=== PATIENT | male | born 1975 | race Two or more races ===

== ENCOUNTER 2020-10-14 19:31 | Observation (INO) | payer BC, OTHER ==
[~2020-10-14] VITALS: Ht 167.6 cm; Wt 146.0 kg
[2020-10-14] MEDS ORDERED: ASPIRIN CHEWABLE 81 MG TABLET. PO ONE (20:30)
[2020-10-14] MEDS ORDERED: NITROGLYCERIN SUBLINGUAL 0.4 MG BOTTLE OF 25. SL PRN (20:30)
--- NOTE | 2020-10-14 20:37 | ED.ADGEN ---
Past Medical History Past Medical History: Diabetes-Type II, Other Additional Past Medical Histor: diverticulitis Past Surgical History: Colectomy, Other Additional Past Surgical Histo: "diverticulitis sx" Smoking Status: Never Smoker Alcohol Use: None Drug Use: None General Adult EDM: Chief Complaint: CHEST PAIN HPI: HPI: Patient is a 44 year old male coming in for chest pain or shortness of breath starting 1 hour prior to arrival. Patient had been at work and describes the pain as substernal pressure-like. Denies any cough. Has had some nausea and dizziness, no diaphoresis or vomiting. Patient has any personal history of heart problems but has a history of hypertension diabetes. Has family history of heart disease. Patient states the pain radiates to his left neck and he has a slight headache. Review of Systems: Review of Systems: Constitutional: Denies fever or chills. [] Eyes: Denies change in visual acuity. [] HENT: Denies nasal congestion or sore throat. [] Respiratory: Denies cough or shortness of breath. [] Cardiovascular: Chest pressure, no lower extreme edema GI: Denies abdominal pain, nausea, vomiting, bloody stools or diarrhea. [] : Denies dysuria. [] Musculoskeletal: Denies back pain or joint pain. [] Integument: Denies rash. [] Neurologic: Generalized headache without focal weakness or sensory changes. [] Endocrine: Denies polyuria or polydipsia. [] Lymphatic: Denies swollen glands. [] Psychiatric: Denies depression or anxiety. [] Current Medications: Current Medications Medications (Trade) Dose Ordered Sig/[facility] Start Time Stop Time Status Last Admin Dose Admin Acetaminophen (Tylenol) 650 mg PRN Q4HRS PRN 10/15/20 00:15 10/16/20 00:14 Aspirin (Aspirin Chewable) 324 mg 1X ONCE 10/14/20 20:30 10/14/20 20:31 DC 10/14/20 20:55 324 MG Fentanyl Citrate (Fentanyl 2ml Vial) 50 mcg PRN Q1HR PRN 10/15/20 00:15 10/16/20 00:14 Nitroglycerin (Nitrostat) 0.4 mg PRN Q5MIN PRN 10/15/20 00:15 10/16/20 00:14 Ondansetron HCl (Zofran) 4 mg PRN Q8HRS PRN 10/15/20 00:15 10/16/20 00:14 Allergies: Allergies: Allergies Coded Allergies Type Severity Reaction Last Updated Verified No Known Drug Allergies 03/06/15 No Physical Exam: PE: Constitutional: Well developed, well nourished, morbid obesity, nondiaphoretic HENT: Normocephalic, atraumatic, bilateral external ears normal, oropharynx moist, no oral exudates, nose normal. [] Eyes: PERRLA, EOMI, conjunctiva normal, no discharge. [] Neck: Normal range of motion, no tenderness, supple, no stridor. [] Cardiovascular:Heart rate regular rhythm, no murmur [] Lungs & Thorax: Bilateral breath sounds clear to auscultation [] Abdomen: Bowel sounds normal, soft, no tenderness, no masses, no pulsatile masses. [] Skin: Warm, dry, no erythema, no rash. [] Back: No tenderness, no CVA tenderness. [] Extremities: No tenderness, no cyanosis, no clubbing, ROM intact, no edema. [] Neurologic: Alert and oriented X 3, normal motor function, normal sensory function, no focal deficits noted. [] Psychologic: Affect normal, judgement normal, mood normal. [] Current Patient Data: Labs: Laboratory Tests Test 10/14/20 20:25 10/14/20 23:25 White Blood Count 11.9 x10^3/uL (4.0-11.0) H Red Blood Count 5.02 x10^6/uL (4.30-5.70) Hemoglobin 15.1 g/dL (13.0-17.5) Hematocrit 44.2 % (39.0-53.0) Mean Corpuscular Volume 88 fL (79-100) Mean Corpuscular Hemoglobin 30 pg (25-35) Mean Corpuscular Hemoglobin Concent 34 g/dL (31-37) Red Cell Distribution Width 13.1 % (11.5-14.5) Platelet Count 288 x10^3/uL (140-400) Neutrophils (%) (Auto) 76 % (31-73) H Lymphocytes (%) (Auto) 15 % (24-48) L Monocytes (%) (Auto) 8 % (0-9) Eosinophils (%) (Auto) 1 % (0-3) Basophils (%) (Auto) 1 % (0-3) Neutrophils # (Auto) 9.0 x10^3/uL (1.8-7.7) H Lymphocytes # (Auto) 1.8 x10^3/uL (1.0-4.8) Monocytes # (Auto) 0.9 x10^3/uL (0.0-1.1) Eosinophils # (Auto) 0.1 x10^3/uL (0.0-0.7) Basophils # (Auto) 0.1 x10^3/uL (0.0-0.2) D-Dimer (Jaky) < 0.27 ug/mlFEU Sodium Level 139 mmol/L (136-145) Potassium Level 3.8 mmol/L (3.5-5.1) Chloride Level 104 mmol/L (98-107) Carbon Dioxide Level 25 mmol/L (21-32) Anion Gap 10 (6-14) Blood Urea Nitrogen 16 mg/dL (8-26) Creatinine 1.1 mg/dL (0.7-1.3) Estimated GFR (Cockcroft-Gault) 72.4 BUN/Creatinine Ratio 15 (6-20) Glucose Level 283 mg/dL (70-99) H Calcium Level 9.0 mg/dL (8.5-10.1) Magnesium Level 1.9 mg/dL (1.8-2.4) Total Bilirubin 0.3 mg/dL (0.2-1.0) Aspartate Amino Transferase (AST) 30 U/L (15-37) Alanine Aminotransferase (ALT) 46 U/L (16-63) Alkaline Phosphatase 93 U/L (46-116) Troponin I Quantitative < 0.017 ng/mL (0.000-0.055) < 0.017 ng/mL (0.000-0.055) QI-Fey-B-Type Natriuretic Peptide 73 pg/mL (0-124) Total Protein 8.2 g/dL (6.4-8.2) Albumin 3.5 g/dL (3.4-5.0) Albumin/Globulin Ratio 0.7 (1.0-1.7) L Lipase 102 U/L (73-393) Laboratory Tests 10/14/20 20:25 Laboratory Tests 10/14/20 20:25 Vital Signs: Vital Signs Date Time Temp Pulse Resp B/P (MAP) Pulse Ox O2 Delivery O2 Flow Rate FiO2 10/15/20 00:29 18 97 Room Air 10/14/20 23:32 101 145/77 (99) 10/14/20 19:50 98.6 98.6 EKG: EKG: Sinus tachycardia, indeterminate axis, no ectopy, no ST elevation or depression. [] Heart Score: HEART Score for Chest Pain: HEART Score for Chest Pain Response (Comments) Value History Moderately Suspicious 1 ECG Normal 0 Age >45 - < 65 1 Risk Factors >3 Risk Factors or Hx CAD 2 Troponin < Normal Limit 0 Total 4 Risk Factors: Risk Factors: DM, Current or recent (<one month) smoker, HTN, HLP, family history of CAD, obesity. Risk Scores: Score 0 - 3: 2.5% MACE over next 6 weeks - Discharge Home Score 4 - 6: 20.3% MACE over next 6 weeks - Admit for Clinical Observation Score 7 - 10: 72.7% MACE over next 6 weeks - Early Invasive Strategies Radiology/Procedures: Radiology/Procedures: Exam: Chest one view INDICATION: Midsternal chest pain TECHNIQUE: Frontal view of the chest Comparisons: None FINDINGS: The cardiomediastinal silhouette and pulmonary vessels are within normal limits. Minimal strandy opacities noted at the medial aspect of the right lung base. No pleural effusion IMPRESSION: Right basilar atelectasis [] Course & Med Decision Making: Course & Med Decision Making Pertinent Labs and Imaging studies reviewed. (See chart for details) Chest pain relieved with nitro, after initial nitro went from a 6-4, second nitro relieved the pain to a 0. Patient has a heart score of 4, a lot of observation [] Dragon Disclaimer: Dragon Disclaimer: This electronic medical record was generated, in whole or in part, using a voice recognition dictation system. Departure Departure Impression: Primary Impression: Chest pain, rule out acute myocardial infarction Disposition: 09 ADMITTED INPT THIS HOSP Admitting Physician: KENIA Condition: STABLE Referrals: NO PCP (PCP) CELENA PARKER MD Oct 14, 2020 20:37
[2020-10-14 20:39] LABS: BASO # 0.1 x10^3/uL (0.0-0.2); BASO % 1 % (0-3); EOS # 0.1 x10^3/uL (0.0-0.7); EOS % 1 % (0-3); HEMATOCRIT 44.2 % (39.0-53.0); HEMOGLOBIN 15.1 g/dL (13.0-17.5); LYMPH # 1.8 x10^3/uL (1.0-4.8); LYMPH % 15 % (24-48); MEAN CORPUSCULAR HEMOGLOBIN 30 pg (25-35); MEAN CORPUSCULAR HGB CONC 34 g/dL (31-37); MEAN CORPUSCULAR VOLUME 88 fL (79-100); MONO # 0.9 x10^3/uL (0.0-1.1); MONO % 8 % (0-9); NEUT % 76 % (31-73); PLATELET COUNT 288 x10^3/uL (140-400); RED BLOOD COUNT 5.02 x10^6/uL (4.30-5.70); RED CELL DISTRIBUTION WIDTH 13.1 % (11.5-14.5); WHITE BLOOD COUNT 11.9 x10^3/uL (4.0-11.0)
[2020-10-14 21:03] LABS: TOTAL PROTEIN 8.2 g/dL (6.4-8.2)
[2020-10-14 21:04] LABS: ALBUMIN 3.5 g/dL (3.4-5.0); ALBUMIN/GLOBULIN RATIO 0.7 (1.0-1.7); CREATININE 1.1 mg/dL (0.7-1.3); GFR 72.4; POTASSIUM 3.8 mmol/L (3.5-5.1); TOTAL BILIRUBIN 0.3 mg/dL (0.2-1.0)
[2020-10-14 21:05] LABS: MAGNESIUM 1.9 mg/dL (1.8-2.4)
--- NOTE | 2020-10-14 21:20 | RAD ---
Exam: Chest one view INDICATION: Midsternal chest pain TECHNIQUE: Frontal view of the chest Comparisons: None FINDINGS: The cardiomediastinal silhouette and pulmonary vessels are within normal limits. Minimal strandy opacities noted at the medial aspect of the right lung base. No pleural effusion IMPRESSION: Right basilar atelectasis Electronically signed by: Lisa Narvaez MD (10/14/2020 9:17 PM) [facility]
[2020-10-14] MEDS ORDERED: fentaNYL PF VIAL 100 MCG/2 ML VIAL IVP ONE ×2 (22:00→23:45)
[2020-10-15] MEDS ORDERED: NITROGLYCERIN SUBLINGUAL 0.4 MG BOTTLE OF 25. SL PRN (00:15)
[2020-10-15] MEDS ORDERED: ONDANSETRON PF 4 MG/2 ML VIAL. IV PRN (00:15)
[2020-10-15] MEDS: fentaNYL PF VIAL 100 MCG/2 ML VIAL IV PRN ×4 (01:37→10:09)
[2020-10-15] MEDS: ACETAMINOPHEN 325 MG TABLET. PO PRN ×4 (02:45→12:51)
[2020-10-15 06:41] LABS: BILIRUBIN,URINE NEGATIVE (NEG); CLARITY,URINE CLEAR; COLOR,URINE YELLOW; NITRITE,URINE NEGATIVE (NEG); PH,URINE 5.5 (<5.0-8.0); PROTEIN,URINE NEGATIVE (NEG-TRACE); UROBILINOGEN,URINE 0.2 mg/dL (0.2 mg/dL)
[2020-10-15 06:56] LABS: BARBITURATES NEG (NEG); BENZODIAZEPINES NEG (NEG); CANNABINOIDS NEG (NEG); COCAINE NEG (NEG); METHADONE NEG (NEG); OPIATES NEG (NEG); PHENCYCLIDINE NEG (NEG)
[2020-10-15 06:58] LABS: AMPHETAMINE/METHAMPHETAMINE NEG (NEG)
[2020-10-15 07:13] LABS: BACTERIA,URINE 0 /HPF (0-FEW); RBC,URINE 0 /HPF (0-2); WBC,URINE 0 /HPF (0-4)
[2020-10-15 08:23] VITALS: BP 124/73
--- NOTE | 2020-10-15 09:11 | PDOC2 ---
CARRINGTON GOULD [employer] MANAGER 10/15/20 0911: CARDIAC CONSULT DATE OF CONSULT Date of Consult DATE: 10/15/20 TIME: 09:07 REASON FOR CONSULT Reason for Consult: Chest pain REFERRING PHYSICIAN Referring Physician: Dr. Donovan SOURCE Source: Chart review, Patient HISTORY OF PRESENT ILLNESS HISTORY OF PRESENT ILLNESS This is a 44 yo male who presented secondary to chest pain. Began about 1 hour prior to arrival. Describes as pressure. [facility] dizzy, diaphoretic. Was short of air. Pain radiated down his left arm. Decided to come to the ED for further evaluation and treatment. Pain worse in palpation of central chest. PAST MEDICAL HISTORY Cardiovascular: HTN GI: Other (diverticulitis ) Endocrine: Diabetes PAST SURGICAL HISTORY Past Surgical History: Colectomy, Colon Resection FAMILY HISTORY Family History: Diabetes, Heart Disease SOCIAL HISTORY Smoke: No ALCOHOL: none Drugs: None Lives: with Family CURRENT MEDICATIONS CURRENT MEDICATIONS Current Medications Medications (Trade) Dose Ordered Sig/Emilia Route PRN Reason Start Time Stop Time Status Last Admin Dose Admin Aspirin (Aspirin Chewable) 324 mg 1X ONCE PO 10/14/20 20:30 10/14/20 20:31 DC 10/14/20 20:55 Nitroglycerin (Nitrostat) 0.4 mg PRN Q5MIN PRN SL CP RATING > 1/10 10/14/20 20:30 10/15/20 00:16 DC 10/14/20 20:57 Fentanyl Citrate (Fentanyl 2ml Vial) 75 mcg 1X ONCE IVP 10/14/20 22:00 10/14/20 22:01 DC 10/14/20 22:06 Fentanyl Citrate (Fentanyl 2ml Vial) 75 mcg 1X ONCE IVP 10/14/20 23:45 10/14/20 23:46 DC 10/15/20 00:29 Fentanyl Citrate (Fentanyl 2ml Vial) 50 mcg PRN Q1HR PRN IV SEVERE PAIN 7-10 10/15/20 00:15 10/16/20 00:14 10/15/20 06:36 Acetaminophen (Tylenol) 650 mg PRN Q4HRS PRN PO FEVER > 100.3'F 10/15/20 00:15 10/16/20 00:14 10/15/20 08:39 ALLERGIES ALLERGIES: Coded Allergies: No Known Drug Allergies (Unverified , 03/06/15) ROS Review of System 14 point ROS conducted with pertinent positives noted above in HPI PHYSICAL EXAM General: Alert, Oriented X3, Cooperative, No acute distress HEENT: Atraumatic Lungs: Clear to auscultation, Other (central chest tenderness upon palpation ) Abdomen: Soft, Other (obese ) Extremities: No edema, Normal pulses Skin: No significant lesion Neuro: Normal speech, Sensation intact Psych/Mental Status: Mental status NL, Mood NL MUSCULOSKELETAL: No deformity VITALS/I&O VITALS/I&O: Vital Signs Date Time Temp Pulse Resp B/P (MAP) Pulse Ox O2 Delivery O2 Flow Rate FiO2 10/15/20 06:36 22 96 10/15/20 06:30 87 159/74 (102) 10/15/20 00:29 Room Air 10/14/20 19:50 98.6 98.6 LABS Lab: Laboratory Tests Test 10/14/20 20:25 10/14/20 23:25 10/15/20 02:40 10/15/20 06:15 White Blood Count 11.9 x10^3/uL (4.0-11.0) H Red Blood Count 5.02 x10^6/uL (4.30-5.70) Hemoglobin 15.1 g/dL (13.0-17.5) Hematocrit 44.2 % (39.0-53.0) Mean Corpuscular Volume 88 fL (79-100) Mean Corpuscular Hemoglobin 30 pg (25-35) Mean Corpuscular Hemoglobin Concent 34 g/dL (31-37) Red Cell Distribution Width 13.1 % (11.5-14.5) Platelet Count 288 x10^3/uL (140-400) Neutrophils (%) (Auto) 76 % (31-73) H Lymphocytes (%) (Auto) 15 % (24-48) L Monocytes (%) (Auto) 8 % (0-9) Eosinophils (%) (Auto) 1 % (0-3) Basophils (%) (Auto) 1 % (0-3) Neutrophils # (Auto) 9.0 x10^3/uL (1.8-7.7) H Lymphocytes # (Auto) 1.8 x10^3/uL (1.0-4.8) Monocytes # (Auto) 0.9 x10^3/uL (0.0-1.1) Eosinophils # (Auto) 0.1 x10^3/uL (0.0-0.7) Basophils # (Auto) 0.1 x10^3/uL (0.0-0.2) D-Dimer (Jaky) < 0.27 ug/mlFEU Sodium Level 139 mmol/L (136-145) Potassium Level 3.8 mmol/L (3.5-5.1) Chloride Level 104 mmol/L (98-107) Carbon Dioxide Level 25 mmol/L (21-32) Anion Gap 10 (6-14) Blood Urea Nitrogen 16 mg/dL (8-26) Creatinine 1.1 mg/dL (0.7-1.3) Estimated GFR (Cockcroft-Gault) 72.4 BUN/Creatinine Ratio 15 (6-20) Glucose Level 283 mg/dL (70-99) H Calcium Level 9.0 mg/dL (8.5-10.1) Magnesium Level 1.9 mg/dL (1.8-2.4) Total Bilirubin 0.3 mg/dL (0.2-1.0) Aspartate Amino Transferase (AST) 30 U/L (15-37) Alanine Aminotransferase (ALT) 46 U/L (16-63) Alkaline Phosphatase 93 U/L (46-116) Troponin I Quantitative < 0.017 ng/mL (0.000-0.055) < 0.017 ng/mL (0.000-0.055) < 0.017 ng/mL (0.000-0.055) < 0.017 ng/mL (0.000-0.055) ML-Agw-J-Type Natriuretic Peptide 73 pg/mL (0-124) Total Protein 8.2 g/dL (6.4-8.2) Albumin 3.5 g/dL (3.4-5.0) Albumin/Globulin Ratio 0.7 (1.0-1.7) L Lipase 102 U/L (73-393) Test 10/15/20 06:25 Urine Collection Type Unknown Urine Color Yellow Urine Clarity Clear Urine pH 5.5 (<5.0-8.0) Urine Specific [place] 1.025 (1.000-1.030) Urine Protein Negative mg/dL (NEG-TRACE) Urine Glucose (UA) 500 mg/dL (NEG) Urine Ketones (Stick) Trace mg/dL (NEG) Urine Blood Negative (NEG) Urine Nitrite Negative (NEG) Urine Bilirubin Negative (NEG) Urine Urobilinogen Dipstick 0.2 mg/dL (0.2 mg/dL) Urine Leukocyte Esterase Negative (NEG) Urine RBC 0 /HPF (0-2) Urine WBC 0 /HPF (0-4) Urine Squamous Epithelial Cells Few /LPF Urine Bacteria 0 /HPF (0-FEW) Urine Mucus Slight /LPF Urine Opiates Screen Neg (NEG) Urine Methadone Screen Neg (NEG) Urine Barbiturates Neg (NEG) Urine Phencyclidine Screen Neg (NEG) Urine Amphetamine/Methamphetamine Neg (NEG) Urine Benzodiazepines Screen Neg (NEG) Urine Cocaine Screen Neg (NEG) Urine Cannabinoids Screen Neg (NEG) Urine Ethyl Alcohol Neg (NEG) Laboratory Tests 10/14/20 20:25 Laboratory Tests 10/14/20 20:25 ASSESSMENT/PLAN ASSESSMENT/PLAN 1. Chest pain, mixed features; AMI ruled out 2. Accelerated hypertension; remains elevated 3. Diabetes, II 4. Obesity Recommendations ASA Lipids Echo to assess LV systolic function Add lisinopril for BP control Will arranged outpatient ischemic evaluation with stress test Supportive care VERENA ENRIQUEZ MD 10/15/20 1659: CARDIAC CONSULT ASSESSMENT/PLAN ASSESSMENT/PLAN Patient seen and examined. Agree with TOWER OBSERVER's assessment and plan. Chest pain with atypical features and most probably GI etiology. Myocardial infarction has been ruled out. Agree with adding lisinopril for better blood pressure control. Check 2D echo to assess LV systolic function and Lexiscan nuclear stress test to rule out ischemia -could be done as an outpatient. Thank you for your consultation CARRINGTON GOULD APRN Oct 15, 2020 09:11 VERENA ENRIQUEZ MD Oct 15, 2020 16:59
[2020-10-15 09:40] LABS: CHOLESTEROL/HDL RATIO 5.4
[2020-10-15] MEDS ORDERED: ASPIRIN ENTERIC COATED 81 MG TABLET.DR. PO SCH (10:00)
--- NOTE | 2020-10-15 10:52 | EKG ---
[facility] [address] [place] [address] Test Date: 2020-10-14 Test Time: 19:56:09 Pat Name: LUIS NIETO Department: Room: Gender: M [employer]: : 1975 Requested By: CELENA PARKER Order Number: [id number] Reading MD: Measurements Intervals [place] Rate: 106 P: 216 HI: 98 QRS: 8 QRSD: 100 T: 13 QT: 320 QTc: 427 Interpretive Statements SINUS TACHYCARDIA R-S TRANSITION ZONE IN V LEADS DISPLACED TO THE LEFT OTHERWISE NORMAL ECG RI6.02 No previous ECG available for comparison
--- NOTE | 2020-10-15 12:18 | HP ---
ADMIT DATE: 10/15/2020 CHIEF COMPLAINT: Chest pain. HISTORY OF PRESENT ILLNESS: The patient is a pleasant 44-year-old male who has a history of diabetes, presents with chest pain that has been occurring for about an hour. He has associated shortness of breath, especially when he stands up, it feels better when he sits still. He took some home meds, but that did not seem to help. I discussed the case with the ER physician. We are going to admit the patient and consult Cardiology. PAST MEDICAL HISTORY: Diabetes and diverticulitis surgery. ALLERGIES: None. FAMILY HISTORY: Diabetes. SOCIAL HISTORY: He does not drink, smoke or take drugs. He is . He has a good job. MEDICATIONS: Reviewed, please refer to the MRAD. REVIEW OF SYSTEMS: GENERAL: No history of weight change, weakness or fevers. SKIN: No bruising, hair changes or rashes. EYES: No blurred, double or loss of vision. NOSE AND THROAT: No history of nosebleeds, hoarseness or sore throat. HEART: He complains of chest pain. LUNGS: Denies cough, hemoptysis, wheezing or shortness of breath. GASTROINTESTINAL: Denies changes in appetite, nausea, vomiting, diarrhea or constipation. GENITOURINARY: No history of frequency, urgency, hesitancy or nocturia. NEUROLOGIC: Denies history of numbness, tingling, tremor or weakness. PSYCHIATRIC: No history of panic, anxiety or depression. ENDOCRINE: No history of heat or cold intolerance, polyuria or polydipsia. EXTREMITIES: Denies muscle weakness, joint pain, pain on walking or stiffness. PHYSICAL EXAMINATION: VITALS: Within normal limits and are stable. GENERAL: No apparent distress. Alert and oriented. HEENT: Normal cephalic atraumatic, external auditory canals are patent. Eyes: Extraocular muscles are intact, pupils are equally round and reactive to light and accommodation. MUSCULOSKELETAL: Well developed, well nourished, good range of motion. ENDOCRINE: No thyromegaly was palpated. LYMPHATICS: No cervical chain or axillary nodes were noted. HEMATOPOIETIC: No bruising. NECK: Supple, no JVD, no thyromegaly was noted. LUNGS: Clear to auscultation in all lung delvalle without rhonchi or wheezing. HEART: RRR, S1, S2 present. Peripheral pulses intact, no obvious murmurs were noted. ABDOMEN: Soft, nontender. Positive bowel sounds no organomegaly, normal bowel sounds. EXTREMITIES: Without any cyanosis, clubbing, or edema. Pedal pulses intact, Homans sign is negative. NEUROLOGIC: Normal speech, normal tone. A and O x 3, moves all extremities, no obvious focal deficits. PSYCHIATRIC: Normal affect, normal mood. Stable. SKIN: No ulcerations or rashes, good skin turgor, no jaundice. VASCULAR: Good capillary refill, neurovascular bundle appears to be intact. LABORATORY DATA: Troponin is 0. TSH slightly high at 4.5. ASSESSMENT AND PLAN: Chest pain, rule out coronary artery disease. The patient will be admitted. We will check serial enzymes, serial EKGs. Consult Cardiology. Home meds, DVT prophylaxis, daily aspirin, cardiac monitoring, lipid panel, p.r.n. nitro, p.r.n. fentanyl. CON BOWMAN DO DR: TY/shahzad JOB#: [id number] / [id number]
[2020-10-15 12:23] VITALS: BP 125/62
[2020-10-15] MEDS ORDERED: oxyCODONE/APAP 5/325 1 TAB TABLET PO PRN (14:00)
[2020-10-15 14:44] VITALS: BP 129/58
--- NOTE | 2020-10-15 16:58 | NUR ---
Nursing note: nurse was unable to discharge pt due to not having access. The charge nurse in the ED helped with the discharge. Pt will follow up with primary care in 1 week. Cardiology will schedule out patient ECHO and Stress Test.
[2020-10-15] MEDS ORDERED: ATORVASTATIN CALCIUM 20 MG TABLET PO SCH (21:00)
[2020-10-16] MEDS ORDERED: LISINOPRIL 20 MG TABLET PO SCH (09:00)
== END 2020-10-15 16:58 | disposition home or self-care (01) ==
LOC: ER 19:31 → ED HOLD 10-15 00:31
PROVIDERS: ADMIT Family Medicine; ATTEND Family Medicine
DX: R07.89 Other chest pain (principal); I10 Essential (primary) hypertension; E11.9 Type 2 diabetes mellitus without complications; J98.11 Atelectasis; E66.9 Obesity, unspecified; K57.92 Diverticulitis of intestine, part unspecified, without perforation or abscess without bleeding; Z79.82 Long term (current) use of aspirin; Z98.890 Other specified postprocedural states; Z68.43 Body mass index [BMI] 50.0-59.9, adult; Z79.899 Other long term (current) drug therapy
CPT/HCPCS: 36415; 71045; 80053; 80061; 80307; 81001; 82962; 83690; 83735; 83880; 84443; 84484; 85025; 85379; 93005; 96374; 96376; 99285; G0378; J3010; G0379

== ENCOUNTER → 2021-07-01 | Outpatient (CLI) | payer BC, OTHER ==
--- NOTE | 2021-07-01 12:46 | RAD ---
EXAM: Abdomen and pelvis CT without intravenous contrast. HISTORY: Pain. TECHNIQUE: Computed tomographic images of the abdomen and pelvis were obtained without intravenous co ntrast. Multiplanar reformatting was performed. *One or more of the following individualized dose reduction techniques were utilized for this examina tion: 1. Automated exposure control. 2. Adjustment of the mA and/or kV according to patient size. 3. Use of iterative reconstruction technique. COMPARISON: None. FINDINGS: Evaluation of the lower thorax demonstrates no infiltrate, pleural effusion or pneumothorax . The heart is normal in size. No hepatic lesion is seen. The gallbladder, pancreas, spleen, stomach, adrenal glands and kidneys are unremarkable on this noncontrast exam. The appendix is surgically abs ent. There is a surgical anastomosis within the right lower quadrant. There is also a surgical anasto mosis within the right upper quadrant. There is diastasis of the ventral abdominal wall musculature. There is a superimposed hernia defect m easuring approximately 7.4 cm and hernia sac measuring 8.8 cm at the level of the umbilicus. There is also an infraumbilical ventral abdominal wall hernia to the right of midline. The hernia sac measure s 7.0 cm and the hernia defect measures 4.5 cm. There is also an infraumbilical hernia extending to t he left of midline within a ventral abdominal wall pannus. The hernia defect measures 5.5 cm and the hernia sac measures 12.6 cm. There is no evidence of fat incarceration. The bladder is nearly empty. There are prostate calcifications. The aorta is normal in caliber. There is no lymphadenopathy. There is no suspicious or acute osseous finding. IMPRESSION: 1. No acute abdominal or pelvic finding. 2. Findings consistent with partial bowel resection. There is no evidence of bowel obstruction or abn ormal bowel wall thickening. 3. Fat-containing ventral abdominal wall hernias superimposed on ventral abdominal wall diastasis. Electronically signed by: Kristi Antony MD (07/01/2021 12:44 PM) [id number]
== END ==
LOC: CT 08:26
PROVIDERS: ATTEND Family Medicine
DX: K43.9 Ventral hernia without obstruction or gangrene (principal); K42.9 Umbilical hernia without obstruction or gangrene
CPT/HCPCS: 74176